=== PATIENT | male | born 1945 | race Caucasian/White ===

== ENCOUNTER 2023-05-18 10:49 | Day surgery (SDC) | payer OTHER ==
[2023-05-18] VITALS (15 sets, daily range): BP systolic 94–116; BP diastolic 55–80; PULSE 57–90; RESP 10–18; TEMP 97.8; O2SAT 94–99
[~2023-05-18] VITALS: Ht 188 cm; Wt 87.6 kg
[2023-05-18] MEDS ORDERED: METO50TA7 PO (11:27)
[2023-05-18] MEDS ORDERED: CHOL10006 PO (11:27)
[2023-05-18] MEDS ORDERED: ATOR40TA72 PO (11:35)
[2023-05-18] MEDS ORDERED: APIX5TAB3 PO (11:35)
[2023-05-18] MEDS ORDERED: AMIO200T72 PO (11:35)
[2023-05-18] MEDS ORDERED: CYAN-34 PO (11:35)
[2023-05-18 11:38] LABS: BASOPHILS # (AUTO) 0.1 X10'3 (0-0.2); BASOPHILS % (AUTO) 0.7 % (0-1); EOSINOPHILS # (AUTO) 0.2 X10'3 (0-0.9); HEMATOCRIT 39.7 % (42.0-52.0); HEMOGLOBIN 13.3 g/dl (14.0-17.9); LYMPHOCYTES # (AUTO) 1.7 X10'3 (1.1-4.8); MEAN CORPUSCULAR HGB CONC 33.6 g/dL (33.0-36.5); MEAN CORPUSCULAR VOLUME 95.2 FL (78-98); MONOCYTES # (AUTO) 0.7 X10'3 (0-0.9); MONOCYTES % (AUTO) 9.4 % (2-12); NEUTROPHILS % (AUTO) 64.9 % (42-75); PLATELET COUNT 271 X10'3 (140-440); RED BLOOD COUNT 4.17 X10'6 (4.70-6.10); RED CELL DISTRIBUTION WIDTH 14.4 % (11.5-14.5); WHITE BLOOD COUNT 7.7 X10'3 (4.5-11.0)
[2023-05-18 11:51] LABS: APTT 34 SECONDS (22-32); INR 1.1 INR; PROTHROMBIN TIME 11.4 SECONDS (9.0-12.0)
[2023-05-18 11:52] LABS: ALBUMIN 3.9 G/DL (3.4-5.0); ANION GAP 13 (8-16); BLOOD UREA NITROGEN 12 MG/DL (7-18); BUN/CREATININE RATIO 10.9 (10.0-20.0); CALCIUM 8.8 MG/DL (8.5-10.1); CHLORIDE 106 MMOL/L (99-107); CHOL/HDL RATIO 2.1 (0.00-4.99); CHOLESTEROL 112 MG/DL (0-200); GLUCOSE 101 MG/DL (70-104); HDL CHOLESTEROL 53 MG/DL (35-60); LDL CHOLESTEROL 50 MG/DL (50-100); POTASSIUM 3.9 MMOL/L (3.5-5.1); SODIUM 143 MMOL/L (135-145); TOTAL CARBON DIOXIDE 23.8 MMOL/L (24-32); TRIGLYCERIDES 39 MG/DL (20-135); eCRCL 66 ML/MIN; eGFR 65 ML/MIN
[2023-05-18] MEDS: normal saline 1000ml 1,000 ML IV SCH (12:42)
[2023-05-18] MEDS: MIDAZolam 1mg/ml 10ml vial IV ONE (12:42)
[2023-05-18] MEDS: fentaNYL/PF 50MCG/1 ML 2ML syringe IV ONE (12:42)
== END 2023-05-18 14:10 | disposition home or self-care (01) ==
LOC: SSTAY O 10:49
PROVIDERS: ATTEND Student in an Organized Health Care Education/Training Program
DX: I48.91 Unspecified atrial fibrillation (principal); I10 Essential (primary) hypertension; E78.5 Hyperlipidemia, unspecified; M19.90 Unspecified osteoarthritis, unspecified site; M81.0 Age-related osteoporosis without current pathological fracture; K21.9 Gastro-esophageal reflux disease without esophagitis; J44.9 Chronic obstructive pulmonary disease, unspecified; F41.9 Anxiety disorder, unspecified; F32.A Depression, unspecified; Z85.828 Personal history of other malignant neoplasm of skin; Z79.899 Other long term (current) drug therapy
CPT/HCPCS: 36415; 80048; 80061; 85025; 85610; 85730; 92960; 93005; J2250; J3010; J7030; A4620